=== PATIENT | male | born 1980 | race Caucasian/White ===

== ENCOUNTER 2020-07-01 21:13 | Emergency (ER) | payer BC ==
[~2020-07-01] VITALS: Ht 185.4 cm; Wt 118.6 kg
[2020-07-01 21:23] VITALS: BP 142/68
[2020-07-01] MEDS ORDERED: CEPH250T PO (22:14)
[2020-07-01] MEDS ORDERED: SULF1TAB45 PO (22:14)
[2020-07-01 23:01] LABS: BASOPHILS # (AUTO) 0.1 X10'3 (0-0.2); BASOPHILS % (AUTO) 1.8 % (0-1); EOSINOPHILS # (AUTO) 0.2 X10'3 (0-0.9); EOSINOPHILS % (AUTO) 2.2 % (0-6); HEMATOCRIT 41.9 % (42.0-52.0); HEMOGLOBIN 14.9 g/dl (14.0-17.9); LYMPHOCYTES # (AUTO) 1.9 X10'3 (1.1-4.8); LYMPHOCYTES % (AUTO) 26.9 % (21-51); MEAN CORPUSCULAR HEMOGLOBIN 31.1 PG (27.0-31.0); MEAN CORPUSCULAR HGB CONC 35.6 g/dL (33.0-36.5); MEAN CORPUSCULAR VOLUME 87.5 FL (78-98); MEAN PLATELET VOLUME 7.6 FL (7.4-10.4); MONOCYTES # (AUTO) 0.5 X10'3 (0-0.9); MONOCYTES % (AUTO) 6.8 % (2-12); NEUTROPHILS # (AUTO) 4.5 X10'3 (1.8-7.7); NEUTROPHILS % (AUTO) 62.3 % (42-75); PLATELET COUNT 239 X10'3 (140-440); RED BLOOD COUNT 4.78 X10'6 (4.70-6.10); RED CELL DISTRIBUTION WIDTH 13.5 % (11.5-14.5); WHITE BLOOD COUNT 7.2 X10'3 (4.5-11.0)
[2020-07-01 23:32] LABS: ALBUMIN 3.9 G/DL (3.4-5.0); ALKALINE PHOSPHATASE 52 IU/L (46-116); C-REACTIVE PROTEIN 0.36 MG/DL (0.0-0.5); CHLORIDE 108 MMOL/L (99-107); CREATININE 1.01 MG/DL (0.60-1.10); TOTAL CARBON DIOXIDE 22.9 MMOL/L (24-32); eGFR 81 ML/MIN
[2020-07-01 23:50] LABS: ALANINE AMINOTRANSFERASE 89 U/L (12-78); ALBUMIN/GLOBULIN RATIO 1.1 (1.1-1.5); ANION GAP 15 (8-16); ASPARTATE AMINO TRANSFERASE 46 U/L (10-37); BILIRUBIN,TOTAL 0.5 MG/DL (0.1-1.0); BLOOD UREA NITROGEN 14 MG/DL (7-18); BUN/CREATININE RATIO 13.9 (5.4-32.0); SODIUM 146 MMOL/L (135-145); TOTAL PROTEIN 7.4 G/DL (6.4-8.2)
[2020-07-01 23:52] LABS: POTASSIUM 3.9 MMOL/L (3.5-5.1)
[2020-07-01 23:53] LABS: GLUCOSE 128 MG/DL (70-104)
== END 2020-07-02 00:17 | disposition home or self-care (01) ==
LOC: ER 21:16
DX: M79.645 Pain in left finger(s) (principal); Z88.0 Allergy status to penicillin; Z79.2 Long term (current) use of antibiotics
CPT/HCPCS: 36415; 73140; 80053; 84550; 85025; 85651; 86140; 99284

== ENCOUNTER 2021-06-22 22:46 | Emergency (ER) | payer OTHER, BC ==
[~2021-06-22] VITALS: Ht 185.4 cm; Wt 116.5 kg
[2021-06-22 23:11] VITALS: BP 131/85
== END 2021-06-23 01:11 | disposition home or self-care (01) ==
LOC: ER 22:47
DX: S60.921A Unspecified superficial injury of right hand, initial encounter (principal); M79.641 Pain in right hand; Z98.890 Other specified postprocedural states; Z88.0 Allergy status to penicillin; X58.XXXA Exposure to other specified factors, initial encounter; Y93.89 Activity, other specified; Y92.89 Other specified places as the place of occurrence of the external cause; Y99.8 Other external cause status
CPT/HCPCS: 73130; 99283